=== PATIENT | female | born 2000 | race Caucasian/White ===

== ENCOUNTER 2019-03-30 13:26 | Emergency (ER) | payer OTHER ==
[~2019-03-30] VITALS: Ht 162.6 cm; Wt 53.3 kg
--- NOTE | 2019-03-30 14:00 | NUR ---
PT MOVED TO ROOM
--- NOTE | 2019-03-30 14:02 | NUR ---
PT UPRIGHT ON GURNEY AWAKE & COMFORTABLE, RESPONDS APPROP TO STAFF, NAD, COMFORT MEASURES PROVIDED, BF AT BS, CALL LIGHT WITHIN REACH.
[2019-03-30 14:41] LABS: MICROSCOPIC INDICATED
[2019-03-30 14:45] LABS: CULTURE INDICATED? YES
[2019-03-30 15:02] VITALS: BP 105/58
--- NOTE | 2019-03-30 15:03 | NUR ---
PT REMAINS UPRIGHT ON GURNEY AWAKE & COMFORTABLE, RESPONDS APPROP TO STAFF, NAD, COMFORT MEASURES PROVIDED, BF AT BS, CALL LIGHT WITHIN REACH.
[2019-03-30 15:07] LABS: BASOPHILS # (AUTO) 0.02 x10^3/uL (0-0.3); BASOPHILS % (AUTO) 0 % (0-1); EOSINOPHILS # (AUTO) 0.16 x10^3/uL (0-0.8); EOSINOPHILS % (AUTO) 2 % (1-7); LYMPHOCYTES % (AUTO) 14 % (22-44); MD NO; MEAN CORPUSCULAR HEMOGLOBIN 30.3 pg (27.0-34.8); MEAN CORPUSCULAR HGB CONC 34.3 g/dL (32.4-35.8); MEAN CORPUSCULAR VOLUME 88.4 fL (80-100); MEAN PLATELET VOLUME 8.6 fL (7.4-10.4); MONOCYTES # (AUTO) 0.52 x10^3/uL (0-1.4); MONOCYTES % (AUTO) 5 % (2-9); NEUTROPHILS # (AUTO) 7.97 x10^3/uL (1.8-8.0); NEUTROPHILS % (AUTO) 79 % (42-75); PLATELET COUNT 170 x10^3/uL (130-400); RED BLOOD COUNT 4.51 x10^6/uL (3.82-5.3); RED CELL DISTRIBUTION WIDTH 13.6 % (9.6-15.2)
[2019-03-30 15:19] LABS: ALANINE AMINOTRANSFERASE 16 U/L (12-78); ALBUMIN 3.1 g/dL (3.4-5.0); ANION GAP 6 mmol/L (5-15); CALCIUM 8.6 mg/dL (8.5-10.1); CHLORIDE 107 mmol/L (98-107)
[2019-03-30 15:20] LABS: ALKALINE PHOSPHATASE 61 U/L (45-117); BILIRUBIN,TOTAL 0.3 mg/dL (0.2-1.0)
--- NOTE | 2019-03-30 16:04 | NUR ---
Patient given discharge instructions and Rx, they have confirmed that they understand the instructions. Patient ambulatory with steady gait.
== END 2019-03-30 16:06 | disposition home or self-care (01) ==
LOC: ED 16:00
DX: O26.892 Other specified pregnancy related conditions, second trimester (principal); R10.30 Lower abdominal pain, unspecified; Z3A.18 18 weeks gestation of pregnancy; Z87.891 Personal history of nicotine dependence
CPT/HCPCS: 36415; 76815; 80053; 81001; 85025; 87086; 99284

== ENCOUNTER 2019-05-05 21:13 | Emergency (ER) | payer SELFPAY ==
[~2019-05-05] VITALS: Ht 162.6 cm; Wt 54.3 kg
[2019-05-05 21:14] VITALS: BP 114/61
== END 2019-05-05 21:28 ==
LOC: ED 21:20
DX: O23.42 Unspecified infection of urinary tract in pregnancy, second trimester (principal); R30.9 Painful micturition, unspecified; R10.9 Unspecified abdominal pain; Z53.21 Procedure and treatment not carried out due to patient leaving prior to being seen by health care provider

== ENCOUNTER 2019-05-05 21:28 | Outpatient (CLI) | payer SELFPAY ==
[~2019-05-05] VITALS: Ht 162.6 cm; Wt 58.3 kg
[2019-05-05 22:22] LABS: MICROSCOPIC INDICATED
[2019-05-05 22:28] LABS: AMPHETAMINE SCREEN, URINE Negative (Negative); BARBITURATE SCREEN, URINE Negative (Negative); BENZODIAZEPINE SCREEN, URINE Negative (Negative); CANNABINOID SCREEN, URINE Positive (Negative); COCAINE SCREEN, URINE Negative (Negative); METHADONE SCREEN, URINE Negative (Negative); OPIATE SCREEN, URINE Negative (Negative)
== END 2019-05-05 22:55 | disposition home or self-care (01) ==
LOC: LDOP 21:28
PROVIDERS: ATTEND Obstetrics & Gynecology
DX: O26.892 Other specified pregnancy related conditions, second trimester (principal); R10.9 Unspecified abdominal pain; Z3A.23 23 weeks gestation of pregnancy
CPT/HCPCS: 80307; 81001; 87086; 99211; G0463

== ENCOUNTER 2019-07-11 13:26 | Emergency (ER) | payer MEDICAID ==
[~2019-07-11] VITALS: Ht 162.6 cm; Wt 62.8 kg
--- NOTE | 2019-07-11 13:58 | NUR ---
CHE IN ROOM FOR EVAL. ST ON MONITOR 96-130. EKG DONE. PIV EST FLUIDS PER [facility] SENT. C/O SOME SOB, NAUSEA, TINGLING IN L HAND, BUT ALL SX HAVE IMPROVED SINCE THEY STARTED AT HOME. ALSO STS HAS NOT BEEN FEELING WELL X "COUPLE DAYS". REPORT TO MASON TORREZ.
[2019-07-11] MEDS ORDERED: SODIUM CHLORIDE FLUSH 10ML SYR IVF ONE (14:00)
[2019-07-11] MEDS ORDERED: SODIUM CHLORIDE 0.9% 1,000ML IVBOLUS ONE (14:00)
[2019-07-11 14:05] LABS: BASOPHILS # (AUTO) 0.06 x10^3/uL (0-0.3); BASOPHILS % (AUTO) 1 % (0-1); EOSINOPHILS # (AUTO) 0.24 x10^3/uL (0-0.8); EOSINOPHILS % (AUTO) 2 % (1-7); LYMPHOCYTES # (AUTO) 2.57 x10^3/uL (1-6.1); LYMPHOCYTES % (AUTO) 21 % (22-44); MD NO; MEAN CORPUSCULAR HEMOGLOBIN 29.9 pg (27.0-34.8); MEAN CORPUSCULAR HGB CONC 33.8 g/dL (32.4-35.8); MEAN CORPUSCULAR VOLUME 88.4 fL (80-100); MEAN PLATELET VOLUME 8.5 fL (7.4-10.4); MONOCYTES # (AUTO) 0.78 x10^3/uL (0-1.4); MONOCYTES % (AUTO) 6 % (2-9); NEUTROPHILS # (AUTO) 8.57 x10^3/uL (1.8-8.0); NEUTROPHILS % (AUTO) 70 % (42-75); PLATELET COUNT 229 x10^3/uL (130-400); RED BLOOD COUNT 3.82 x10^6/uL (3.82-5.3); RED CELL DISTRIBUTION WIDTH 12.3 % (9.6-15.2)
[2019-07-11] MEDS ORDERED: FAMOTIDINE 20 MG/2 ML ONE (14:10)
[2019-07-11] MEDS ORDERED: ONDANSETRON 2MG/ML, 2ML ONE (14:10)
[2019-07-11 14:14] LABS: ALANINE AMINOTRANSFERASE 11 U/L (12-78); ALBUMIN 2.9 g/dL (3.4-5.0); ANION GAP 8 mmol/L (5-15); CALCIUM 8.4 mg/dL (8.5-10.1); CHLORIDE 110 mmol/L (98-107); CREATININE 0.61 mg/dL (0.55-1.02)
[2019-07-11 14:17] LABS: ALKALINE PHOSPHATASE 107 U/L (45-117); BILIRUBIN,TOTAL 0.2 mg/dL (0.2-1.0)
[2019-07-11] MEDS ORDERED: FAMOTIDINE 20 MG/2 ML IVPush ONE (14:30)
[2019-07-11] MEDS ORDERED: ONDANSETRON 2MG/ML, 2ML IVPush ONE (14:30)
--- NOTE | 2019-07-11 14:30 | NUR ---
HR IMPROVED. OOB TO BATHROOM, GAIT STEADY.
--- NOTE | 2019-07-11 15:04 | NUR ---
REPEAT EKG SR80
--- NOTE | 2019-07-11 15:33 | NUR ---
UA SENT. HEART RATE IMPROVED. STS FEELS BETTER.
[2019-07-11 15:39] LABS: MICROSCOPIC AUTO
[2019-07-11 15:43] LABS: CULTURE INDICATED? YES
[2019-07-11 16:26] VITALS: BP 104/58
== END 2019-07-11 16:28 | disposition home or self-care (01) ==
LOC: ED 14:03
DX: O26.893 Other specified pregnancy related conditions, third trimester (principal); R42 Dizziness and giddiness; R06.02 Shortness of breath; R00.0 Tachycardia, unspecified; Z3A.32 32 weeks gestation of pregnancy
CPT/HCPCS: 36415; 80053; 81001; 85025; 87086; 93005; 96361; 96374; 96375; 99285; J2405; J3490; J7030

== ENCOUNTER 2019-08-04 22:19 | Outpatient (CLI) | payer MEDICAID ==
[~2019-08-04] VITALS: Ht 162.6 cm; Wt 62.7 kg
[2019-08-04 22:15] VITALS: BP 108/82
[2019-08-04 23:14] LABS: MICROSCOPIC INDICATED
[2019-08-04 23:40] LABS: AMPHETAMINE SCREEN, URINE Negative (Negative); BARBITURATE SCREEN, URINE Negative (Negative); BENZODIAZEPINE SCREEN, URINE Negative (Negative); CANNABINOID SCREEN, URINE Negative (Negative); COCAINE SCREEN, URINE Negative (Negative); METHADONE SCREEN, URINE Negative (Negative); OPIATE SCREEN, URINE Negative (Negative)
[2019-08-05] MEDS ORDERED: LACTATED RINGERS 1,000 ML IVBOLUS ONE (00:30)
[2019-08-05] MEDS ORDERED: DIPHENHYDRAMINE 25 MG CAPSULE ONE (00:43)
== END 2019-08-05 01:38 | disposition home or self-care (01) ==
LOC: LDOP 22:19
PROVIDERS: ATTEND Obstetrics & Gynecology
DX: O62.9 Abnormality of forces of labor, unspecified (principal); O99.283 Endocrine, nutritional and metabolic diseases complicating pregnancy, third trimester; E86.0 Dehydration; O26.893 Other specified pregnancy related conditions, third trimester; R10.9 Unspecified abdominal pain; Z3A.35 35 weeks gestation of pregnancy
CPT/HCPCS: 59025; 80307; 81001; 87086; 96360; 99211; J7120; G0463

== ENCOUNTER 2019-08-10 14:02 | Outpatient (CLI) | payer MEDICAID ==
[~2019-08-10] VITALS: Ht 162.6 cm; Wt 63.0 kg
[2019-08-10] MEDS ORDERED: BETAMETHASONE 6 MG/ML, 5ML IM ONE ×2 (14:30→14:43)
[2019-08-10 14:38] LABS: AMPHETAMINE SCREEN, URINE Negative (Negative); BARBITURATE SCREEN, URINE Negative (Negative); BENZODIAZEPINE SCREEN, URINE Negative (Negative); CANNABINOID SCREEN, URINE Negative (Negative); COCAINE SCREEN, URINE Negative (Negative); METHADONE SCREEN, URINE Negative (Negative); OPIATE SCREEN, URINE Negative (Negative)
[2019-08-10 15:01] LABS: MICROSCOPIC INDICATED
[2019-08-10] MEDS ORDERED: TERBUTALINE 1 MG/ML, 1ML ONE (16:24)
[2019-08-10] MEDS ORDERED: TERBUTALINE 1 MG/ML, 1ML SQ ONE (16:30)
[2019-08-11] MEDS ORDERED: MULT-658 PO (14:57)
== END 2019-08-10 16:38 | disposition home or self-care (01) ==
LOC: LDOP 14:02
PROVIDERS: ATTEND Obstetrics & Gynecology
DX: O62.9 Abnormality of forces of labor, unspecified (principal); R10.9 Unspecified abdominal pain; Z3A.35 35 weeks gestation of pregnancy
CPT/HCPCS: 59025; 80307; 81001; 87081; 87086; 96372; 99211; J0702; J3105; G0463

== ENCOUNTER 2019-08-11 14:14 | Outpatient (CLI) | payer OTHER ==
[~2019-08-11] VITALS: Ht 162.6 cm; Wt 62.7 kg
[2019-08-11 14:19] VITALS: BP 114/65
[2019-08-11] MEDS ORDERED: MULT-658 PO (14:57)
[2019-08-11] MEDS ORDERED: BETAMETHASONE 6 MG/ML, 5ML IM ONE (15:00)
[2019-08-11] MEDS ORDERED: PLEASE ENTER HEIGHT AND WEIGHT MC SCH (15:00)
== END 2019-08-11 15:05 | disposition home or self-care (01) ==
LOC: LDOP 14:14
PROVIDERS: ATTEND Obstetrics & Gynecology
DX: O62.9 Abnormality of forces of labor, unspecified (principal); Z3A.35 35 weeks gestation of pregnancy
CPT/HCPCS: 59025; 96372; 99211; J0702; G0463

== ENCOUNTER 2019-08-13 14:55 | Outpatient (CLI) | payer OTHER ==
[~2019-08-13 14:55] MED LIST: MULT-658 PO
== END 2019-08-13 16:04 | disposition home or self-care (01) ==
LOC: LDOP 14:55
PROVIDERS: ATTEND Obstetrics & Gynecology
DX: O26.893 Other specified pregnancy related conditions, third trimester (principal); R10.9 Unspecified abdominal pain; Z3A.37 37 weeks gestation of pregnancy
CPT/HCPCS: 59025; 99211; G0463

== ENCOUNTER 2019-08-15 00:11 | Outpatient (CLI) | payer OTHER ==
[~2019-08-15] VITALS: Ht 162.6 cm; Wt 63.6 kg
[2019-08-15 00:59] LABS: MICROSCOPIC INDICATED
[2019-08-15 01:17] LABS: AMPHETAMINE SCREEN, URINE Negative (Negative); BARBITURATE SCREEN, URINE Negative (Negative); BENZODIAZEPINE SCREEN, URINE Negative (Negative); CANNABINOID SCREEN, URINE Negative (Negative); COCAINE SCREEN, URINE Negative (Negative); METHADONE SCREEN, URINE Negative (Negative); OPIATE SCREEN, URINE Negative (Negative)
== END 2019-08-15 02:04 | disposition home or self-care (01) ==
LOC: LDOP 00:11
PROVIDERS: ATTEND Obstetrics & Gynecology
DX: O62.9 Abnormality of forces of labor, unspecified (principal); Z3A.36 36 weeks gestation of pregnancy
CPT/HCPCS: 59025; 80307; 81001; 84112; 87086; 99211; G0463

== ENCOUNTER 2019-08-17 22:46 | Outpatient (CLI) | payer OTHER ==
[2019-08-17 23:28] LABS: MICROSCOPIC INDICATED
[2019-08-17 23:36] LABS: AMPHETAMINE SCREEN, URINE Negative (Negative); BARBITURATE SCREEN, URINE Negative (Negative); BENZODIAZEPINE SCREEN, URINE Negative (Negative); CANNABINOID SCREEN, URINE Negative (Negative); COCAINE SCREEN, URINE Negative (Negative); METHADONE SCREEN, URINE Negative (Negative); OPIATE SCREEN, URINE Negative (Negative)
== END 2019-08-17 23:56 | disposition home or self-care (01) ==
LOC: LDOP 22:46
PROVIDERS: ATTEND Obstetrics & Gynecology
DX: O26.893 Other specified pregnancy related conditions, third trimester (principal); R25.2 Cramp and spasm; Z3A.36 36 weeks gestation of pregnancy
CPT/HCPCS: 59025; 80307; 81001; 84112; 87086; 99211; G0463

== ENCOUNTER 2019-08-21 12:37 | Outpatient (CLI) | payer OTHER ==
[~2019-08-21] VITALS: Ht 162.6 cm; Wt 64.0 kg
[2019-08-21] MEDS ORDERED: ACET325C6 PO (12:40)
[2019-08-21 13:31] LABS: MICROSCOPIC INDICATED
[2019-08-21 13:38] LABS: AMPHETAMINE SCREEN, URINE Negative (Negative); BARBITURATE SCREEN, URINE Negative (Negative); CANNABINOID SCREEN, URINE Negative (Negative); COCAINE SCREEN, URINE Negative (Negative); METHADONE SCREEN, URINE Negative (Negative); OPIATE SCREEN, URINE Negative (Negative)
[2019-08-21 13:40] LABS: BENZODIAZEPINE SCREEN, URINE Negative (Negative)
== END 2019-08-21 14:21 | disposition home or self-care (01) ==
LOC: LDOP 12:37
PROVIDERS: ATTEND Obstetrics & Gynecology
DX: O26.893 Other specified pregnancy related conditions, third trimester (principal); R10.9 Unspecified abdominal pain; Z3A.37 37 weeks gestation of pregnancy
CPT/HCPCS: 59025; 80307; 81001; 99211; G0463

== ENCOUNTER 2019-08-28 11:32 | Outpatient (CLI) | payer OTHER ==
[~2019-08-28] VITALS: Ht 162.6 cm; Wt 63.6 kg
[~2019-08-28 11:32] MED LIST changes: +ACET325C6 PO
== END 2019-08-28 12:45 | disposition home or self-care (01) ==
LOC: LDOP 11:32
PROVIDERS: ATTEND Obstetrics & Gynecology
DX: O26.893 Other specified pregnancy related conditions, third trimester (principal); R10.9 Unspecified abdominal pain; Z3A.34 34 weeks gestation of pregnancy
CPT/HCPCS: 59025; 99211; G0463

== ENCOUNTER 2019-08-30 12:12 | Outpatient (CLI) | payer MEDICAID, OTHER ==
[~2019-08-30] VITALS: Ht 162.6 cm; Wt 67.3 kg
[2019-08-30 12:22] VITALS: BP 101/69
== END 2019-08-30 13:42 | disposition home or self-care (01) ==
LOC: LDOP 12:12
PROVIDERS: ATTEND Obstetrics & Gynecology
DX: O42.92 Full-term premature rupture of membranes, unspecified as to length of time between rupture and onset of labor (principal); Z3A.38 38 weeks gestation of pregnancy
CPT/HCPCS: 59025; 89060; 99211; G0463; Q0114

== ENCOUNTER 2019-09-03 06:09 | Inpatient (IN) | payer MEDICAID ==
[~2019-09-03] VITALS: Ht 162.6 cm; Wt 67.3 kg
[2019-09-03] MEDS ORDERED: OXYTOCIN 30U/ 0.9% NaCL 500ML 500 ML IV ONE (06:11)
[2019-09-03] MEDS ORDERED: D5%-LACTATED RINGERS 1,000 ML IV SCH (06:11)
[2019-09-03] MEDS ORDERED: NEWBORN KIT ONE (06:15)
[2019-09-03] MEDS ORDERED: LIDOCAINE 1%, 20ML ONE (06:15)
[2019-09-03] MEDS ORDERED: OXYTOCIN 30U/ 0.9% NaCL 500ML 500 ML ONE ×2 (06:16→21:48)
[2019-09-03] MEDS ORDERED: MISOPROSTOL 200 MCG TABLET ONE (06:16)
[2019-09-03] MEDS ORDERED: FENTANYL PF 100 MCG/2ML IV PRN (06:30)
[2019-09-03] MEDS ORDERED: ALUMINUM/MAG/SIMETHICONE 30 ML UDC PO PRN (06:30)
[2019-09-03] MEDS ORDERED: SODIUM CITRATE/CITRIC ACID 30 ML UDC PO PRN (06:30)
[2019-09-03] MEDS ORDERED: CALCIUM CARBONATE 500 MG TAB.CHEW PO PRN (06:30)
[2019-09-03] MEDS ORDERED: TERBUTALINE 1 MG/ML, 1ML SQ PRN (06:30)
[2019-09-03] MEDS ORDERED: METOCLOPRAMIDE 5 MG/ML, 2ML IVPush PRN (06:30)
[2019-09-03] MEDS ORDERED: TERBUTALINE 1 MG/ML, 1ML IVPush PRN (06:30)
[2019-09-03 06:46] VITALS: BP 109/53
[2019-09-03 06:57] LABS: BASOPHILS # (AUTO) 0.02 x10^3/uL (0-0.3); BASOPHILS % (AUTO) 0 % (0-1); EOSINOPHILS # (AUTO) 0.18 x10^3/uL (0-0.8); EOSINOPHILS % (AUTO) 2 % (1-7); LYMPHOCYTES # (AUTO) 2.57 x10^3/uL (1-6.1); LYMPHOCYTES % (AUTO) 24 % (22-44); MD NO; MEAN CORPUSCULAR HEMOGLOBIN 27.6 pg (27.0-34.8); MEAN CORPUSCULAR VOLUME 83.7 fL (80-100); MEAN PLATELET VOLUME 8.2 fL (7.4-10.4); MONOCYTES # (AUTO) 0.63 x10^3/uL (0-1.4); MONOCYTES % (AUTO) 6 % (2-9); NEUTROPHILS # (AUTO) 7.47 x10^3/uL (1.8-8.0); NEUTROPHILS % (AUTO) 69 % (42-75); PLATELET COUNT 194 x10^3/uL (130-400); RED BLOOD COUNT 3.98 x10^6/uL (3.82-5.3); RED CELL DISTRIBUTION WIDTH 14.2 % (9.6-15.2)
[2019-09-03] MEDS: LACTATED RINGERS 1,000 ML IV SCH ×4 (07:55→17:50)
[2019-09-03] MEDS ORDERED: FENTANYL/BUPIV./NS/PF 250 ML EPIDCONT SCH (08:30)
[2019-09-03] MEDS ORDERED: FENTANYL PF 100 MCG/2ML ONE ×3 (08:54→12:37)
[2019-09-03] MEDS: FENTANYL PF 100 MCG/2ML IVPush PRN ×3 (09:03→12:47)
[2019-09-03] MEDS ORDERED: ONDANSETRON 2MG/ML, 2ML ONE ×2 (09:32→13:48)
[2019-09-03] MEDS: ONDANSETRON 2MG/ML, 2ML IVPush PRN ×2 (09:35→13:51)
[2019-09-03] MEDS ORDERED: FENTANYL PF 500 MCG, BUPIVACAINE/PF 0.5%, 30ML 62.5 ML in SODIUM CHLORIDE 0.9% 177.5 ML EPIDCONT SCH (11:30)
[2019-09-03] MEDS ORDERED: LIDOCAINE/PF 1.5%-EPI 1:200K, 30ML ONE (13:08)
[2019-09-03] MEDS ORDERED: BUPIVACAINE 0.25% ONE (13:08)
[2019-09-03] MEDS ORDERED: BUPIVACAINE/PF 0.5%, 30ML 62.5 ML, FENTANYL PF 500 MCG in SODIUM CHLORIDE 0.9% 177.5 ML EPIDCONT SCH (13:34)
[2019-09-03] MEDS ORDERED: LACTATED RINGERS 1,000 ML IVBOLUS PRN (14:00)
[2019-09-03] MEDS ORDERED: EPHEDRINE 50 MG/ML, 1ML IVPush PRN (14:00)
[2019-09-03] MEDS ORDERED: NALOXONE 0.4 MG/ML, 1ML IVPush PRN (14:00)
[2019-09-03] MEDS ORDERED: METOCLOPRAMIDE 5 MG/ML, 2ML ONE (15:12)
[2019-09-03 19:15] VITALS: BP 109/61
[2019-09-03] MEDS ORDERED: IBUPROFEN 600 MG TABLET ONE (21:49)
[2019-09-03] MEDS: IBUPROFEN 600 MG TABLET PO PRN (21:50)
[2019-09-03] MEDS: OXYTOCIN 30U/ 0.9% NaCL 500ML 500 ML IV SCH (21:51)
[2019-09-03] MEDS ORDERED: ONDANSETRON 2MG/ML, 2ML IV PRN (22:00)
[2019-09-03] MEDS ORDERED: MISOPROSTOL 200 MCG TABLET PR PRN (22:00)
[2019-09-03] MEDS ORDERED: RHOGAM FROM BLOOD BANK 1 NOTE EA IM/IV ONE (22:00)
[2019-09-03] MEDS ORDERED: SIMETHICONE 80 MG CHEW TAB PO PRN (22:00)
[2019-09-03] MEDS ORDERED: METHYLERGONOVINE 0.2 MG/ML IM PRN (22:00)
[2019-09-03] MEDS ORDERED: TRANEXAMIC ACID 100 MG/ML, 10ML IV ONE (22:00)
[2019-09-04 00:05] VITALS: BP 114/70
[2019-09-04] MEDS: OXYcodone/APAP 5/325MG TABLET PO PRN ×4 (01:30→18:19)
[2019-09-04 03:50] VITALS: BP 128/71
[2019-09-04 05:35] LABS: BASOPHILS # (AUTO) 0.05 x10^3/uL (0-0.3); BASOPHILS % (AUTO) 0 % (0-1); EOSINOPHILS # (AUTO) 0.17 x10^3/uL (0-0.8); EOSINOPHILS % (AUTO) 1 % (1-7); LYMPHOCYTES # (AUTO) 1.52 x10^3/uL (1-6.1); LYMPHOCYTES % (AUTO) 11 % (22-44); MD NO; MEAN CORPUSCULAR HEMOGLOBIN 27.6 pg (27.0-34.8); MEAN CORPUSCULAR HGB CONC 33.1 g/dL (32.4-35.8); MEAN CORPUSCULAR VOLUME 83.2 fL (80-100); MEAN PLATELET VOLUME 8.4 fL (7.4-10.4); MONOCYTES # (AUTO) 0.83 x10^3/uL (0-1.4); MONOCYTES % (AUTO) 6 % (2-9); NEUTROPHILS # (AUTO) 11.87 x10^3/uL (1.8-8.0); NEUTROPHILS % (AUTO) 82 % (42-75); PLATELET COUNT 147 x10^3/uL (130-400); RED BLOOD COUNT 3.31 x10^6/uL (3.82-5.3); RED CELL DISTRIBUTION WIDTH 14.5 % (9.6-15.2)
[2019-09-04] MEDS: OXYTOCIN 30U/ 0.9% NaCL 500ML 500 ML IV SCH (07:38)
[2019-09-04] MEDS: DOCUSATE 100 MG CAPSULE PO PRN (08:45)
[2019-09-04] MEDS: IBUPROFEN 600 MG TABLET PO PRN ×2 (08:45→15:09)
[2019-09-04] MEDS: PRENATAL VIT/IRON/FA 1 EACH TABLET PO SCH (08:45)
[2019-09-04 08:55] VITALS: BP 90/57
[2019-09-04 12:30] VITALS: BP 96/57
[2019-09-04 16:00] VITALS: BP 102/66
[2019-09-04 19:25] VITALS: BP 94/52
[2019-09-04] MEDS ORDERED: DIPHENHYDRAMINE 25 MG CAPSULE PO PRN (20:00)
[2019-09-05] MEDS: OXYcodone/APAP 5/325MG TABLET PO PRN ×3 (00:24→12:44)
[2019-09-05] MEDS: IBUPROFEN 600 MG TABLET PO PRN ×3 (00:24→12:45)
[2019-09-05] MEDS: PRENATAL VIT/IRON/FA 1 EACH TABLET PO SCH (07:23)
[2019-09-05] MEDS: DOCUSATE 100 MG CAPSULE PO PRN (07:23)
== END 2019-09-05 14:00 | disposition home or self-care (01) | DRG 807 ==
LOC: LDIP 06:09 → 2NW 23:38
PROVIDERS: ADMIT Obstetrics & Gynecology; ATTEND Obstetrics & Gynecology
PROC: 10E0XZZ Delivery of Products of Conception, External Approach (ICD-10-PCS; principal; 2019-09-03)
PROC: 3E0R3BZ Introduction of Anesthetic Agent into Spinal Canal, Percutaneous Approach (ICD-10-PCS; 2019-09-03)
PROC: 10H07YZ Insertion of Other Device into Products of Conception, Via Natural or Artificial Opening (ICD-10-PCS; 2019-09-03)
PROC: 3E033VJ Introduction of Other Hormone into Peripheral Vein, Percutaneous Approach (ICD-10-PCS; 2019-09-03)
PROC: 00HU33Z Insertion of Infusion Device into Spinal Canal, Percutaneous Approach (ICD-10-PCS; 2019-09-03)
DX: O36.5930 Maternal care for other known or suspected poor fetal growth, third trimester, not applicable or unspecified (principal); Z37.0 Single live birth; Z3A.39 39 weeks gestation of pregnancy
CPT/HCPCS: 36415; 87806; J3490; S0020; 85025; 86592; 86850; 86870; 86900; 86922; 86923; G0378; J2405; J3010; G0475; J2590; J2765; J7050; J7120; Q0163